=== PATIENT | male | born 1955 | race African-American/Black ===

== ENCOUNTER 2021-11-12 09:32 | Inpatient (IN) | payer MEDICARE, MEDICAID ==
[2021-11-12] MEDS ORDERED: Piperacillin/Tazobactam 3.375 GM VIAL ONE (10:14)
[2021-11-12 10:40] LABS: #Eosinphils 0.2 10x3/uL (0.0-0.5); #Monocytes 1.1 10x3/uL (0.0-1.1); #Neutrophils 4.8 10x3/uL (1.5-8.4); %Basophils 0.5 % (0.0-2.0); %Eosinophils 2.4 % (0.0-6.0); %Lymphocytes 23.9 % (18.0-47.0); Mean Corpuscular HGB CONC 31.9 g/dL (32.0-36.0); Mean Corpuscular Hemoglobin 26.9 pg (27.0-33.0); Mean Corpuscular Volume 84.3 fl (81.2-95.1); Platelet Count 384 10x3/uL (150-450); RBC Distribution Width 13.5 % (11.5-14.5); Red Blood Cell (RBC) Count 4.46 10x6/uL (4.32-5.72); White Blood Cell (WBC) Count 8.1 10x3/uL (3.5-10.5)
[2021-11-12 10:50] LABS: PTT 30.8 sec (22.0-33.0); Prothrombin Time 11.4 sec (9.5-12.1)
[2021-11-12 10:55] LABS: ALT (SGPT) 31 U/L (8-55); AST (SGOT) 22 U/L (5-34); Albumin 3.2 g/dL (3.4-4.8); Alkaline Phosphatase 52 U/L (40-110); Anion Gap 12 mmol/L (10-20); BUN (Urea Nitrogen) 16 mg/dL (8.4-25.7); Bilirubin, Total 0.4 mg/dL (0.2-1.2); CRP (Inflammatory) 10.34 mg/dL (= or < 0.5); Calc. Creatinine Clearance 0 mL/min (70-130); Calcium 8.4 mg/dL (7.8-10.44); Carbon Dioxide 23 mmol/L (23-31); Chloride 105 mmol/L (98-107); Globulin 3.4 g/dL (2.4-3.5); Glucose 259 mg/dL (80-115); Potassium 4.1 mmol/L (3.5-5.1); Protein, Total 6.6 g/dL (5.8-8.1); Sodium 136 mmol/L (136-145)
[2021-11-12 11:51] LABS: SARS-CoV-2 NAA Rapid Test Not Detected (NotDetected)
[2021-11-12] MEDS ORDERED: Dextrose 50% Abboject 50 ML SYRINGE SLOW IVP PRN (14:51)
[2021-11-12] MEDS ORDERED: Dextrose 5% in Water 1,000 ML IV PRN (14:51)
[2021-11-12] MEDS ORDERED: Senokot S 8.6-50 MG TAB PO PRN (14:52)
[2021-11-12] MEDS ORDERED: Ondansetron ODT 4 MG TAB PO PRN (14:52)
[2021-11-12] MEDS ORDERED: Acetaminophen 325 MG TAB PO PRN (14:52)
[2021-11-12] MEDS ORDERED: Piperacillin/Tazobactam 3.375 GM in Sodium Chloride 0.9% 100 ML IVPB SCH (15:30)
[2021-11-12 17:07] VITALS: BMI 32.9
[2021-11-12] MEDS: Piperacillin/Tazobactam 3.375 GM in Sodium Chloride 0.9% 100 ML IVPB SCH (19:42)
[2021-11-12] MEDS: HumaLOG 300 UNITS/3 ML VIAL SC PRN (20:29)
[2021-11-12] MEDS ORDERED: Vancomycin 1 GM in Premix Bag 1 BAG IVPB SCH (21:00)
[2021-11-12] MEDS: VANCOMYCIN 1.25 GM/250 ML BAG 1.25 GM in Premix Bag 1 BAG IVPB SCH (22:55)
[2021-11-13] MEDS: Piperacillin/Tazobactam 3.375 GM in Sodium Chloride 0.9% 100 ML IVPB SCH ×3 (03:17→18:29)
[2021-11-13 05:15] LABS: #Basophils 0.1 10x3/uL (0.0-0.2); #Eosinphils 0.2 10x3/uL (0.0-0.5); #Monocytes 1.1 10x3/uL (0.0-1.1); #Neutrophils 5.5 10x3/uL (1.5-8.4); %Basophils 0.7 % (0.0-2.0); %Eosinophils 2.3 % (0.0-6.0); %Lymphocytes 20.4 % (18.0-47.0); %Neutrophils 63.4 % (40.0-75.0); Hemoglobin 11.8 g/dL (13.5-17.5); Mean Corpuscular HGB CONC 33.6 g/dL (32.0-36.0); Mean Corpuscular Hemoglobin 27.6 pg (27.0-33.0); Mean Platelet Volume 9.3 fl (7.4-10.4); Platelet Count 360 10x3/uL (150-450); RBC Distribution Width 13.5 % (11.5-14.5); Red Blood Cell (RBC) Count 4.28 10x6/uL (4.32-5.72); White Blood Cell (WBC) Count 8.6 10x3/uL (3.5-10.5)
[2021-11-13 05:34] LABS: ALT (SGPT) 27 U/L (8-55); AST (SGOT) 22 U/L (5-34); Albumin 2.8 g/dL (3.4-4.8); Alkaline Phosphatase 49 U/L (40-110); Anion Gap 11 mmol/L (10-20); BUN (Urea Nitrogen) 11 mg/dL (8.4-25.7); Bilirubin, Total 0.7 mg/dL (0.2-1.2); Calc. Creatinine Clearance 158 mL/min (70-130); Calcium 8.6 mg/dL (7.8-10.44); Carbon Dioxide 23 mmol/L (23-31); Chloride 104 mmol/L (98-107); Globulin 3.6 g/dL (2.4-3.5); Glucose 179 mg/dL (80-115); Protein, Total 6.4 g/dL (5.8-8.1); Sodium 134 mmol/L (136-145)
[2021-11-13] MEDS: Enoxaparin Sodium 40 MG/0.4 ML SYRINGE SC SCH (07:54)
[2021-11-13] MEDS ORDERED: Simvastatin 10 MG TAB PO SCH (09:00)
[2021-11-13] MEDS ORDERED: Aspirin 81 mg Enteric Coated Tablet PO SCH (09:00)
[2021-11-13] MEDS: Aspirin 81 mg Enteric Coated Tablet PO SCH (09:04)
[2021-11-13] MEDS: Lisinopril 20 MG TAB PO SCH (09:04)
[2021-11-13] MEDS: VANCOMYCIN 1.25 GM/250 ML BAG 1.25 GM in Premix Bag 1 BAG IVPB SCH (10:01)
[2021-11-13] MEDS: HumaLOG 300 UNITS/3 ML VIAL SC PRN ×2 (17:03→23:12)
[2021-11-13] MEDS: Atorvastatin Calcium 40 MG TAB PO SCH (20:54)
[2021-11-13 22:03] LABS: Vancomycin, Trough 6.3 ug/mL
[2021-11-13] MEDS: VANCOMYCIN 1.75 GM/350 ML BAG 1.75 GM in Premix Bag 1 BAG IVPB SCH (23:11)
[2021-11-14] MEDS: Piperacillin/Tazobactam 3.375 GM in Sodium Chloride 0.9% 100 ML IVPB SCH ×3 (02:51→20:38)
[2021-11-14] MEDS ORDERED: hydrALAZINE 20 MG/ML VIAL SLOW IVP PRN (08:04)
[2021-11-14] MEDS: Aspirin 81 mg Enteric Coated Tablet PO SCH (08:15)
[2021-11-14] MEDS: Enoxaparin Sodium 40 MG/0.4 ML SYRINGE SC SCH (08:15)
[2021-11-14] MEDS: Lisinopril 20 MG TAB PO SCH (08:15)
[2021-11-14] MEDS: VANCOMYCIN 1.75 GM/350 ML BAG 1.75 GM in Premix Bag 1 BAG IVPB SCH ×2 (11:07→23:49)
[2021-11-14] MEDS: HumaLOG 300 UNITS/3 ML VIAL SC PRN ×3 (12:34→20:38)
[2021-11-14] MEDS: Atorvastatin Calcium 40 MG TAB PO SCH (20:38)
[2021-11-15] MEDS: Piperacillin/Tazobactam 3.375 GM in Sodium Chloride 0.9% 100 ML IVPB SCH ×2 (04:02→11:46)
[2021-11-15] MEDS: HumaLOG 300 UNITS/3 ML VIAL SC PRN ×4 (06:27→21:34)
[2021-11-15] MEDS: Aspirin 81 mg Enteric Coated Tablet PO SCH (08:44)
[2021-11-15] MEDS: Lisinopril 20 MG TAB PO SCH (08:44)
[2021-11-15] MEDS: Enoxaparin Sodium 40 MG/0.4 ML SYRINGE SC SCH (08:46)
[2021-11-15 10:28] LABS: Vancomycin, Trough 10.4 ug/mL
[2021-11-15] MEDS: VANCOMYCIN 1.75 GM/350 ML BAG 1.75 GM in Premix Bag 1 BAG IVPB SCH ×2 (10:45→23:46)
[2021-11-15] MEDS: metFORMIN 500 MG TAB PO SCH (16:13)
[2021-11-15] MEDS: cefTRIAXone\\ROCEPHIN 2 GM in Sodium Chloride 0.9% 100 ML IVPB SCH (16:13)
[2021-11-15] MEDS: metroNIDAZOLE 500 MG TAB PO SCH (20:38)
[2021-11-15] MEDS: Atorvastatin Calcium 40 MG TAB PO SCH (20:38)
[2021-11-16] MEDS: metFORMIN 500 MG TAB PO SCH ×2 (06:20→16:42)
[2021-11-16] MEDS: Aspirin 81 mg Enteric Coated Tablet PO SCH (08:46)
[2021-11-16] MEDS: metroNIDAZOLE 500 MG TAB PO SCH ×2 (08:46→16:42)
[2021-11-16] MEDS: Lisinopril 20 MG TAB PO SCH (08:46)
[2021-11-16] MEDS: Enoxaparin Sodium 40 MG/0.4 ML SYRINGE SC SCH (08:46)
[2021-11-16] MEDS ORDERED: Sodium Bicarbonate 2.5 MEQ/5 ML VIAL ONE (11:20)
[2021-11-16] MEDS ORDERED: Lidocaine 1% PF 5 ML VIAL ONE (11:25)
[2021-11-16] MEDS: VANCOMYCIN 1.75 GM/350 ML BAG 1.75 GM in Premix Bag 1 BAG IVPB SCH (13:06)
[2021-11-16 15:42] VITALS: TEMP 98.4
[2021-11-16] MEDS: cefTRIAXone\\ROCEPHIN 2 GM in Sodium Chloride 0.9% 100 ML IVPB SCH (16:42)
[2021-11-17 08:30] VITALS: BP 145/71
== END 2021-11-16 19:30 | DRG 638 ==
LOC: CSHERS 09:32 → CSHTELE 14:33
PROVIDERS: ADMIT Hospitalist; ATTEND Internal Medicine
PROC: 02HV33Z Insertion of Infusion Device into Superior Vena Cava, Percutaneous Approach (ICD-10-PCS; principal; 2021-11-16)
PROC: B5181ZA Fluoroscopy of Superior Vena Cava using Low Osmolar Contrast, Guidance (ICD-10-PCS; 2021-11-16)
PROC: B548ZZA Ultrasonography of Superior Vena Cava, Guidance (ICD-10-PCS; 2021-11-16)
DX: E11.69 Type 2 diabetes mellitus with other specified complication (principal); M86.8X7 Other osteomyelitis, ankle and foot; F03.90 Unspecified dementia, unspecified severity, without behavioral disturbance, psychotic disturbance, mood disturbance, and anxiety; F17.210 Nicotine dependence, cigarettes, uncomplicated; E11.621 Type 2 diabetes mellitus with foot ulcer; Z20.822 Contact with and (suspected) exposure to COVID-19; L97.529 Non-pressure chronic ulcer of other part of left foot with unspecified severity; I10 Essential (primary) hypertension; E11.51 Type 2 diabetes mellitus with diabetic peripheral angiopathy without gangrene; R32 Unspecified urinary incontinence; E78.5 Hyperlipidemia, unspecified; Z79.82 Long term (current) use of aspirin; Z79.84 Long term (current) use of oral hypoglycemic drugs; Z89.411 Acquired absence of right great toe; Z89.421 Acquired absence of other right toe(s); Z71.6 Tobacco abuse counseling
CPT/HCPCS: 36415; 36416; 36568; 71045; 80053; 80202; 83605; 84484; 85025; 85610; 85652; 85730; 86140; 86850; 86900; 86901; 87040; 87070; 87077; 87186; 87205; 93005; 93925; 93970; 94760; C1751; J0696; J1650; J1815; J2543; J3370; J3490; U0002